=== PATIENT | female | born 1970 | race Caucasian/White ===

== ENCOUNTER 2023-03-25 12:53 | Outpatient (CLI) | payer BC, SELFPAY ==
--- NOTE | ~2023-03-25 | XR_ITS ---
EXAMINATION: XR finger 5th RT min 2V DATE: 03/25/2023 13:14 INDICATION: Pain at the interphalangeal joints of the fifth digit post supplying injury TECHNIQUE: Dorsal palmar, lateral and 2 oblique views of the right fifth digit were obtained COMPARISON: None FINDINGS: Nondisplaced oblique fracture of the fifth middle phalanx extending from the ulnar side of the distal articular surface at the radial side of the base of the middle phalanx. Alignment remains essentiall y anatomic. No other fractures identified. Mild osteoarthritis at the visualized interphalangeal join ts. Mild soft tissue swelling about the fifth digit. IMPRESSION: 1. Nondisplaced oblique fracture extending the length of the fifth middle phalanx. Reviewed, dictated and finalized at location A. IMPRESSION: 1. Nondisplaced oblique fracture extending the length of the fifth middle phala nx.
== END 2023-03-25 12:54 | disposition home or self-care (01) ==
PROVIDERS: Visit Provider Plastic Surgery
DX: S62.656A Nondisplaced fracture of middle phalanx of right little finger, initial encounter for closed fracture (principal); X58.XXXA Exposure to other specified factors, initial encounter
CPT/HCPCS: 73140

== ENCOUNTER 2023-03-31 10:39 | Outpatient (CLI) | payer BC, SELFPAY ==
--- NOTE | ~2023-03-31 | XR_ITS ---
EXAMINATION: XR finger 5th RT min 2V DATE: 03/31/2023 10:56 INDICATION: Right hand small finger fracture follow-up. TECHNIQUE: 4 views of right hand fifth digit were obtained. COMPARISON: Right hand fifth digit radiographs 03/25/2023 FINDINGS: There is an oblique fracture of fifth middle phalanx with involvement of the distal articul ar surface in near-anatomic alignment. There is a possible oblique fracture of the head of the fifth metacarpal with involvement of the articular surface in near-anatomic alignment. There is mild osteoa rthritis of fifth distal interphalangeal joint. IMPRESSION: 1. Oblique fracture of fifth middle phalanx in near-anatomic alignment. 2. Possible oblique fracture of head of fifth metacarpal in near-anatomic alignment seen on only one view. Reviewed, dictated and finalized at location E. IMPRESSION: 1. Oblique fracture of fifth middle phalanx in near-anatomic alignment. 2. Possible oblique fracture of head of fifth metacarpal in near-anatomic align ment seen on only one view.
== END 2023-03-31 10:40 | disposition home or self-care (01) ==
LOC: ANHIMG 10:42
PROVIDERS: Visit Provider Plastic Surgery
DX: S62.626D Displaced fracture of middle phalanx of right little finger, subsequent encounter for fracture with routine healing (principal); X58.XXXD Exposure to other specified factors, subsequent encounter
CPT/HCPCS: 73140

== ENCOUNTER 2023-04-11 10:54 | Outpatient (CLI) | payer BC, SELFPAY ==
--- NOTE | ~2023-04-11 | XR_ITS ---
EXAM: XR finger 5th RT min 2V DATE: 04/11/2023 11:50 HISTORY: small finger fracture . COMPARISON: 03/31/2023. FINDINGS: Normal mineralization. Healing nondisplaced intra-articular fracture of the distal aspect of the right fifth middle phalange. No right fifth metacarpal fracture detected. No new acute fractur e or dislocation. No lytic or blastic lesion. Mild scattered osteoarthritic changes. No erosion or pe riosteal change. Soft tissues within normal limits. IMPRESSION: Healing, nondisplaced, intra-articular fracture of the distal aspect of the right fifth middle phalan ge. Reviewed, dictated and finalized at location K. IMPRESSION: Healing, nondisplaced, intra-articular fracture of the distal aspect of the rig ht fifth middle phalange.
== END 2023-04-11 10:55 | disposition home or self-care (01) ==
PROVIDERS: Visit Provider Plastic Surgery
DX: S62.626D Displaced fracture of middle phalanx of right little finger, subsequent encounter for fracture with routine healing (principal); X58.XXXD Exposure to other specified factors, subsequent encounter
CPT/HCPCS: 73140

== ENCOUNTER 2023-04-25 12:36 | Outpatient (CLI) | payer BC, SELFPAY ==
--- NOTE | ~2023-04-25 | XR_ITS ---
EXAMINATION: XR finger 5th RT min 2V DATE: 04/25/2023 13:17 INDICATION: Displaced fracture of the right fifth middle phalanx TECHNIQUE: Dorsal palmar, lateral and 2 oblique views of the right fifth digit were obtained COMPARISON: 04/11/2023 FINDINGS: Continued interval healing of a fracture at the right fifth middle phalanx which remains in near-mat omic alignment with no residual lucency along the fracture plane. No new fractures identified. Mild o steoarthritis at the fifth proximal and distal interphalangeal and fourth proximal interphalangeal caio ints. No erosions to suggest inflammatory arthritis. Soft tissues are unremarkable. IMPRESSION: Interval progression of now advanced healing of a fracture of the right fifth middle phalanx which re travis in near-anatomic alignment. Reviewed, dictated and finalized at location A. IMPRESSION: Interval progression of now advanced healing of a fracture of the right fifth m iddle phalanx which remains in near-anatomic alignment.
--- NOTE | ~2023-04-25 | XR_ITS ---
EXAMINATION: XR knee RT min 4V, XR knee LT min 4V DATE: 04/25/2023 13:16 INDICATION: Acute bilateral knee pain TECHNIQUE: 1. Weight bearing anteroposterior and Cahkraborty, sunrise, and flexed lateral views of the right knee were obtained 2. Weight bearing anteroposterior and Chakraborty, sunrise, and flexed lateral views of the left knee w ere obtained COMPARISON: None. FINDINGS: Alignment is normal at both knees. No fracture. Normal joint space at the medial and lateral compartm ents of both knees. Mild bilateral patellofemoral osteoarthritis with small marginal osteophytes with relatively preserved joint spaces. No erosions to suggest inflammatory arthritis. Soft tissues are u nremarkable in both knees with no knee joint effusions. IMPRESSION: 1. Mild bilateral patellofemoral osteoarthritis. Reviewed, dictated and finalized at location A. IMPRESSION: 1. Mild bilateral patellofemoral osteoarthritis.
--- NOTE | ~2023-04-25 | XR_ITS ---
EXAMINATION: XR hip LT min 2V, XR hip RT min 2V DATE: 04/25/2023 13:15 INDICATION: Acute onset bilateral hip pain TECHNIQUE: 1. Anteroposterior and frog-leg lateral views of the left hip were obtained. 2. Anteroposterior and frog-leg lateral views of the right hip were obtained. COMPARISON: None. FINDINGS: Normal alignment at the bilateral hips. No fracture or suspected avascular necrosis. Very mild bilate ral hip and sacroiliac osteoarthritis, the former with tiny marginal osteophytes but relatively prese rved joint spaces. Couple phleboliths in the pelvis along with bilateral Essure type fallopian tube occlusion devices. IMPRESSION: 1. Very mild bilateral hip and sacroiliac osteoarthritis. Reviewed, dictated and finalized at location A. IMPRESSION: 1. Very mild bilateral hip and sacroiliac osteoarthritis.
== END 2023-04-25 12:37 | disposition home or self-care (01) ==
LOC: ANHIMG 12:41
PROVIDERS: Visit Provider Plastic Surgery
DX: M17.0 Bilateral primary osteoarthritis of knee (principal); S62.626D Displaced fracture of middle phalanx of right little finger, subsequent encounter for fracture with routine healing; X58.XXXD Exposure to other specified factors, subsequent encounter; M16.0 Bilateral primary osteoarthritis of hip; M53.3 Sacrococcygeal disorders, not elsewhere classified
CPT/HCPCS: 73140; 73502; 73564

== ENCOUNTER 2023-11-13 09:06 | Emergency (ER) | payer BC, SELFPAY ==
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
[2023-11-13 09:10] VITALS: BP 116/74; PULSE 65; RESP 16; TEMP 36.9; O2SAT 99
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
== END 2023-11-13 09:53 | disposition home or self-care (01) ==
PROVIDERS: Emergency Provider Nurse Practitioner
DX: S20.222A Contusion of left back wall of thorax, initial encounter (principal); V92.03XA Drowning and submersion due to fall off other powered watercraft, initial encounter; Z79.82 Long term (current) use of aspirin; K21.9 Gastro-esophageal reflux disease without esophagitis
CPT/HCPCS: 71101; 99213; G0463

== ENCOUNTER 2025-04-22 13:54 | Outpatient (CLI) | payer BC, SELFPAY ==
--- NOTE | ~2025-04-22 | XR_ITS ---
EXAMINATION: XR hand LT min 3V, 04/22/2025 14:00 CDT HISTORY: S63.502A - Unspecified sprain of left wrist, initial enco... COMPARISON: No comparisons available. Findings: No acute fracture or malalignment. No significant degenerative changes. Soft tissues unremarkable. Impression: No acute fracture or malalignment. Reviewed, dictated and finalized at location A. Impression: No acute fracture or malalignment.
--- OUTSIDE RECORDS SUMMARY | 2025-04-22 14:16 | XMS_ITS | Encounter Summary ---
Author Organization [facility] Address [address] [place] [address] Care Team Providers Care Business Law Teacher Name Role Phone Ilya Chadwick MD Primary Care Provider + Encounter Details Date Type Department Care Team (Late st Contact Info) Description 08/09/2007 Outpatient Historical [facility] Shawna Ralph MD [address] [place] [address] Normal Delivery Social History Tobacco Use Types Packs/Day Years Used Date Smoking Tobacco: Never Assessed Comments Unknown Sex and Gender Information Value Date Recorded Sex Assigned at Not on file Legal Sex Female 3:47 AM PUBLIC ADDRESS SYSTEM MECHANIC Gender Identity Not on file Sexual Orientation Not on file documented as of this encounter Plan of Treatment Not on file documented as of this encounter Procedures Procedure Name Priority Date/Time Associated Diagnosis Comments CBC WITH DIFFERENTIAL Routine 08/09/2007 9:25 AM PUBLIC ADDRESS SYSTEM MECHANIC CBC WITH DIFFERENTIAL Routine 08/09/2007 9:25 AM PUBLIC ADDRESS SYSTEM MECHANIC URIC ACID Routine 08/09/2007 9:25 AM PUBLIC ADDRESS SYSTEM MECHANIC AST Routine 08/09/2007 9:25 AM PUBLIC ADDRESS SYSTEM MECHANIC LACTATE DEHYDROGENASE Routine 08/09/2007 9:25 AM PUBLIC ADDRESS SYSTEM MECHANIC URINALYSIS WITH REFLEX CULTURE Routine 08/09/2007 8:10 AM PUBLIC ADDRESS SYSTEM MECHANIC URINALYSIS W/REFLEX MICROSCOPIC Routine 08/09/2007 8:10 AM PUBLIC ADDRESS SYSTEM MECHANIC documented in this encounter Results * (ABNORMAL) CBC WITH DIFFERENTIAL (08/09/2007 9:25 AM PUBLIC ADDRESS SYSTEM MECHANIC) NEUTROPHILS 93(H) 45 - 70 % INTERFAC E SYSTEM LYMPHOCYTES 3(L) 16 - 45 % INTERFAC E SYSTEM MONOCYTES 4 3 - 13 % INTERFACE SYSTEM EOSINOPHILS 0 0 - 7 % INTERFAC E SYSTEM BASOPHILS 0 0 - 2 % INTERFACE SYSTEM NEUTROPHIL ABSOLUTE 13.40(H) 1.90 - 7.00 K/uL INTERFACE SYSTEM LYMPHOCYTE ABSOLUTE 0.36(L) 0.70 - 4.50 K/uL INTERFACE SYSTEM MONOCYTE ABSOLUTE 0.58 0.10 - 1.30 K/uL INTERFACE SYSTEM EOSINOPHIL ABSOLUTE 0.03 0.00 - 0.70 K/uL INTERFACE SYSTEM BASOPHILS ABSOLUTE 0.03 0.00 - 0.20 K/uL INTERFACE SYSTEM 08/09/2007 9:25 AM PUBLIC ADDRESS SYSTEM MECHANIC Shawna Ralph MD HEMATOLOGY ORDERABLES Edited Performing Organization Address City/[facility] Co de Phone Number INTERFACE SYSTEM Refer to clinic/hospital department * (ABNORMAL) CBC WITH DIFFERENTIAL (08/09/2007 9:25 AM PUBLIC ADDRESS SYSTEM MECHANIC) WBC 14.4(H) 4.0 - 9.8 K/uL INTERFACE SYSTEM RBC 3.99 3.90 - 4.90 M/uL INTERFACE SYSTEM HEMOGLOBIN 12.5 11.8 - 14.8 g/dL INTERFACE SYSTEM HEMATOCRIT 36.5 35.5 - 44.0 % INTERFACE SYSTEM MCV 91.5 82.0 - 99.0 fL INTERFACE SYSTEM MCH 31.3 27.2 - 32.6 pg INTERFACE SYSTEM MCHC 34.2 31.5 - 35.5 % INTERFACE SYSTEM RDW 13.9 11.5 - 14.5 % INTERFACE SYSTEM RDW-STDEV 45.9 37.1 - 48.7 fL INTERFACE SYSTEM PLATELETS 267 140 - 350 K/uL INTERFACE SYSTEM MPV 10.2 9.3 - 12.4 fL INTERFACE SYSTEM 08/09/2007 9:25 AM PUBLIC ADDRESS SYSTEM MECHANIC us Shawna Ralph MD HEMATOLOGY ORDERABLES Edited Performing Organization Address City/[facility]/ZIP Co de Phone Number INTERFACE SYSTEM Refer to clinic/hospital department * URIC ACID (08/09/2007 9:25 AM PUBLIC ADDRESS SYSTEM MECHANIC) URIC ACID 3.5 2.3 - 6.6 mg/dL INTERFACE SYSTEM 08/09/2007 9:25 AM PUBLIC ADDRESS SYSTEM MECHANIC us Shawna Ralph MD CHEMISTRY ORDERABLES Edited Performing Organization Address [facility] de Phone Number INTERFACE SYSTEM Refer to clinic/hospital department * LACTATE DEHYDROGENASE (08/09/2007 9:25 AM PUBLIC ADDRESS SYSTEM MECHANIC) LD (LACTATE DEHYDROGENASE) 166 135 - 214 U/L INTERFACE SYSTEM 08/09/2007 9:25 AM PUBLIC ADDRESS SYSTEM MECHANIC us Shawna Ralph MD CHEMISTRY ORDERABLES Edited Performing Organization Address [facility] de Phone Number INTERFACE SYSTEM Refer to clinic/hospital department * AST (08/09/2007 9:25 AM PUBLIC ADDRESS SYSTEM MECHANIC) AST 23 12 - 32 U/L INTERFAC E SYSTEM 08/09/2007 9:25 AM PUBLIC ADDRESS SYSTEM MECHANIC us Shawna Ralph MD CHEMISTRY ORDERABLES Edited Performing Organization Address [facility] de Phone Number INTERFACE SYSTEM Refer to clinic/hospital department * (ABNORMAL) URINALYSIS (08/09/2007 8:10 AM PUBLIC ADDRESS SYSTEM MECHANIC) COLOR UA Yellow INTERFACE SYSTEM CLARITY UA Clear Clear INTERFACE SYSTEM SPECIFIC GRAVITY UA 1.020 1.001 - 1.035 INTERFACE SYSTEM PH UA 7.5 5.0 - 8.0 INTERFACE SYSTEM LEUKOCYTE ESTERASE UA Negative Negative INTERFACE SYSTEM NITRITE UA Negative Negative INTERFACE SYSTEM PROTEIN UA Trace(A) Negative INTERFACE SYSTEM GLUCOSE UA Negative Negative INTERFACE SYSTEM KETONES UA 2+(A) Negative INTERFACE SYSTEM UROBILINOGEN UA <1 <=1 mg/dL INTE RFACE SYSTEM BILIRUBIN UA Negative Negative INTERFA CE SYSTEM BLOOD UA Negative Negative INTERFACE SYSTEM WBC UA 1 0 - 5 /HPF INTERFACE SYSTEM RBC UA 4 0 - 4 /HPF INTERFACE SYSTEM BACTERIA UA 1+(A) None Seen /HPF INTERFACE SYSTEM EPITHELIAL CELLS, URINE 2-5 /HPF INTERFACE SYSTEM 08/09/2007 8:10 AM PUBLIC ADDRESS SYSTEM MECHANIC us Shawna Ralph MD URINE ORDERABLES Edited Performing Organization Address [facility] Phone Number INTERFACE SYSTEM Refer to clinic/hospital department * URINALYSIS WITH REFLEX CULTURE (08/09/2007 8:10 AM PUBLIC ADDRESS SYSTEM MECHANIC) URINE CULTURE ORDER Not indicated INTERFACE SYSTEM Comment: Criteria for a reflex culture include one or more of the following: Abn ormal nitrite, leukocyte esterase, WBCs or RBCs. Lack of qualifying criteria does not exclude the possiblity of a urinary tract infection. Dilute urine, drug interference, etc. may decrease the sensitivity of the criteria analytes. 08/09/2007 8:10 AM PUBLIC ADDRESS SYSTEM MECHANIC us Shawna Ralph MD URINE ORDERABLES Edited Performing Organization Address [facility] Phone Number INTERFACE SYSTEM Refer to clinic/hospital department documented in this encounter Visit Diagnoses Diagnosis Normal delivery documented in this encounter Care Teams Business Law Teacher Relationship Specialty Start Date End Date Ilya Chadwick MD [address] [place] [address] PCP - General 03/30/07 documented as of this encounter
--- OUTSIDE RECORDS SUMMARY | 2025-04-22 14:16 | XMS_ITS | Encounter Summary ---
Author Organization [facility] Address [address] [place] [address] Care Team Providers Care Restaurant Associate Name Role Phone Ilya Chadwick MD Primary Care Provider + Encounter Details Date Type Department Care Team (Late st Contact Info) Description 09/11/2007 Outpatient Historical [facility] Maternal and Ground Floor S [facility] [address] [place] [phone] Montez Dumont MD [address] [place] [phone] Social History Tobacco Use Types Packs/Day Years Used Date Smoking Tobacco: Never Assessed Comments Unknown Sex and Gender Information Value Date Recorded Sex Assigned at Not on file Legal Sex Female 3:47 AM PERSONAL CARE SERVICE PROVIDER Gender Identity Not on file Sexual Orientation Not on file documented as of this encounter Plan of Treatment Not on file documented as of this encounter Visit Diagnoses Not on filedocumented in this encounter Care Teams Restaurant Associate Relationship Specialty Start Date End Date Ilya Chadwick MD [address] [place] [phone] PCP - General 03/30/07 documented as of this encounter
--- OUTSIDE RECORDS SUMMARY | 2025-04-22 14:16 | XMS_ITS | Encounter Summary ---
Author Organization [facility] Address [address] [place] [address] Care Team Providers Care Fund Accountant Name Role Phone Ilya Chadwick MD Primary Care Provider + Encounter Details Date Type Department Care Team (Late st Contact Info) Description 06/02/2007 Outpatient Historical [facility] Shawna Ralph MD [address] [place] [address] Social History Tobacco Use Types Packs/Day Years Used Date Smoking Tobacco: Never Assessed Comments Unknown Sex and Gender Information Value Date Recorded Sex Assigned at Not on file Legal Sex Female 3:47 AM INSOLE LIP TURNER Gender Identity Not on file Sexual Orientation Not on file documented as of this encounter Plan of Treatment Not on file documented as of this encounter Visit Diagnoses Not on filedocumented in this encounter Care Teams Fund Accountant Relationship Specialty Start Date End Date Ilya Chadwick MD [address] [place] [address] PCP - General 03/30/07 documented as of this encounter
--- OUTSIDE RECORDS SUMMARY | 2025-04-22 14:16 | XMS_ITS | Encounter Summary ---
Author Organization [facility] Address [address] [place] [address] Care Team Providers Care Body And Frame Man Name Role Phone Ilya Chadwick MD Primary Care Provider + Encounter Details Date Type Department Care Team (Latest Contact Info) Description 05/01/2007 Outpatient Historical [facility] Shawna Ralph MD [address] [place] [address] Abn NOS-Antepar (Primary Dx) Social History Tobacco Use Types Packs/Day Years Used Date Smoking Tobacco: Never Assessed Comments Unknown Sex and Gender Information Value Date Recorded Sex Assigned at Not on file Legal Sex Female 3:47 AM DOCUMENT IMAGING MANAGER Gender Identity Not on file Sexual Orientation Not on file documented as of this encounter Plan of Treatment Not on file documented as of this encounter Visit Diagnoses Diagnosis Unspecified abnormality affecting management of mother, antepartum condition or complication- Primary documented in this encounter Care Teams Body And Frame Man Relationship Specialty Start Date End Date Ilya Chadwick MD [address] [place] [address] PCP - General 03/30/07 documented as of this encounter
--- OUTSIDE RECORDS SUMMARY | 2025-04-22 14:16 | XMS_ITS | Encounter Summary ---
Author Organization [facility] Address [address] [place] [address] Care Team Providers Care Process Excellence Manager Name Role Phone Ilya Chadwick MD Primary Care Provider + Encounter Details Date Type Department Care Team (Late st Contact Info) Description 11/18/2005 Outpatient Historical [facility] [place] [address] [facility] [address] [place] [address] Other Screening Mammogram (Primary Dx) Social History Tobacco Use Types Packs/Day Years Used Date Smoking Tobacco: Never Assessed Comments Unknown Sex and Gender Information Value Date Recorded Sex Assigned at Not on file Legal Sex Female 3:47 AM DEBRIDGING MACHINE OPERATOR Gender Identity Not on file Sexual Orientation Not on file documented as of this encounter Plan of Treatment Not on file documented as of this encounter Visit Diagnoses Diagnosis Other screening mammogram- Primary documented in this encounter Care Teams Process Excellence Manager Relationship Specialty Start Date End Date Ilya Chadwick MD [address] [place] [address] PCP - General 03/30/07 documented as of this encounter
--- OUTSIDE RECORDS SUMMARY | 2025-04-22 14:16 | XMS_ITS | Encounter Summary ---
Author Organization [facility] Address [address] [place] [address] Care Team Providers Care Life Insurance Sales Agent Name Role Phone Ilya Chadwick MD Primary Care Provider + Encounter Details Date Type Department Care Team (Late st Contact Info) Description 04/13/2007 Outpatient Historical [facility] Maternal and Ground Floor S [facility] [address] [place] [address] Shawna Ralph MD [address] [place] [address] Social History Tobacco Use Types Packs/Day Years Used Date Smoking Tobacco: Never Assessed Comments Unknown Sex and Gender Information Value Date Recorded Sex Assigned at Not on file Legal Sex Female 3:47 AM COLORING MACHINE OPERATOR Gender Identity Not on file Sexual Orientation Not on file documented as of this encounter Plan of Treatment Not on file documented as of this encounter Visit Diagnoses Not on filedocumented in this encounter Care Teams Life Insurance Sales Agent Relationship Specialty Start Date End Date Ilya Chadwick MD [address] [place] [address] PCP - General 03/30/07 documented as of this encounter
--- OUTSIDE RECORDS SUMMARY | 2025-04-22 14:16 | XMS_ITS | Encounter Summary ---
Author Organization [facility] Address [address] [place] [address] Care Team Providers Care Ur Coordinator Name Role Phone Ilya Chadwick MD Primary Care Provider + Encounter Details Date Type Department Care Team (Late st Contact Info) Description 05/26/[address] [facility] Maternal and Ground Floor S [facility] [address] [facility] [place] [phone] Ric Arita MD NO ADDRESS ON FILE Social History Tobacco Use Types Packs/Day Years Used Date Smoking Tobacco: Never Assessed Comments Unknown Sex and Gender Information Value Date Recorded Sex Assigned at Not on file Legal Sex Female 3:47 AM STEWARDESSES TEACHER Gender Identity Not on file Sexual Orientation Not on file documented as of this encounter Plan of Treatment Not on file documented as of this encounter Visit Diagnoses Not on filedocumented in this encounter Care Teams Ur Coordinator Relationship Specialty Start Date End Date Ilya Chadwick MD [address] [place] [phone] PCP - General 03/30/07 documented as of this encounter
--- OUTSIDE RECORDS SUMMARY | 2025-04-22 14:16 | XMS_ITS | Encounter Summary ---
Author Organization [facility] Address [address] [place] [address] Care Team Providers Care Timber Skidder Name Role Phone Ilya Chadwick MD Primary Care Provider + Encounter Details Date Type Department Care Team (Late st Contact Info) Description 09/14/2007 Outpatient Historical [facility] Maternal and Ground Floor S [facility] [address] [place] [phone] Bhupinder Christianson MD NO ADDRESS ON FILE Social History Tobacco Use Types Packs/Day Years Used Date Smoking Tobacco: Never Assessed Comments Unknown Sex and Gender Information Value Date Recorded Sex Assigned at Not on file Legal Sex Female 3:47 AM ELECTRONICS UTILITY WORKER Gender Identity Not on file Sexual Orientation Not on file documented as of this encounter Plan of Treatment Not on file documented as of this encounter Visit Diagnoses Not on filedocumented in this encounter Care Teams Timber Skidder Relationship Specialty Start Date End Date Ilya Chadwick MD [address] [place] [address] PCP - General 03/30/07 documented as of this encounter
--- OUTSIDE RECORDS SUMMARY | 2025-04-22 14:16 | XMS_ITS | Encounter Summary ---
Author Organization [facility] Address [address] [place] [address] Care Team Providers Care Production Control Analyst Name Role Phone Ilya Chadwick MD Primary Care Provider + Encounter Details Date Type Department Care Team (Latest Contact Info) Description 09/06/2007 [facility] Shawna Ralph MD [address] [place] [address] Abn NOS-Antepar Social History Tobacco Use Types Packs/Day Years Used Date Smoking Tobacco: Never Assessed Comments Unknown Sex and Gender Information Value Date Recorded Sex Assigned at Not on file Legal Sex Female 3:47 AM RELIABILITY TECHNOLOGIST Gender Identity Not on file Sexual Orientation Not on file documented as of this encounter Plan of Treatment Not on file documented as of this encounter Visit Diagnoses Diagnosis Unspecified abnormality affecting management of mother, antepartum condition or complication documented in this encounter Care Teams Production Control Analyst Relationship Specialty Start Date End Date Ilya Chadwick MD [address] [place] [address] PCP - General 03/30/07 documented as of this encounter
--- OUTSIDE RECORDS SUMMARY | 2025-04-22 14:16 | XMS_ITS | Encounter Summary ---
Author Organization [facility] Address [address] [place] [address] Care Team Providers Care Public Area Supervisor Name Role Phone Ilya Chadwick MD Primary Care Provider + Encounter Details Date Type Department Care Team (Late st Contact Info) Description 05/11/2007 Outpatient Historical [facility] Maternal and Ground Floor S [facility] [address] [place] [phone] Montez Dumont MD [id number] [place] [phone] Social History Tobacco Use Types Packs/Day Years Used Date Smoking Tobacco: Never Assessed Comments Unknown Sex and Gender Information Value Date Recorded Sex Assigned at Not on file Legal Sex Female 3:47 AM NICKER Gender Identity Not on file Sexual Orientation Not on file documented as of this encounter Plan of Treatment Not on file documented as of this encounter Visit Diagnoses Not on filedocumented in this encounter Care Teams Public Area Supervisor Relationship Specialty Start Date End Date Ilya Chadwick MD [address] [place] [address] PCP - General 03/30/07 documented as of this encounter
--- OUTSIDE RECORDS SUMMARY | 2025-04-22 14:16 | XMS_ITS | Encounter Summary ---
Author Organization [facility] Address [address] [place] [address] Care Team Providers Care Electric Motor Mechanic Name Role Phone Ilya Chadwick MD Primary Care Provider + Encounter Details Date Type Department Care Team (Late st Contact Info) Description 03/30/2007 Outpatient Historical [facility] Maternal and Ground Floor S 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
--- OUTSIDE RECORDS SUMMARY | 2025-04-22 14:16 | XMS_ITS | Encounter Summary ---
Author Organization [facility] Address [address] [place] [address] Care Team Providers Care Match Up Person Name Role Phone Ilya Chadwick MD Primary Care Provider + Encounter Details Date Type Department Care Team (Latest Contact Info) Description 03/30/2007 Outpatient [facility] Shawna Ralph MD [address] [place] [address] Abn NOS-Antepar (Primary Dx) Social History Tobacco Use Types Packs/Day Years Used Date Smoking Tobacco: Never Assessed Comments Unknown Sex and Gender Information Value Date Recorded Sex Assigned at Not on file Legal Sex Female 3:47 AM PLASTICS BENCH MECHANIC Gender Identity Not on file Sexual Orientation Not on file documented as of this encounter Plan of Treatment Not on file documented as of this encounter Visit Diagnoses Diagnosis Unspecified abnormality affecting management of mother, antepartum condition or complication- Primary documented in this encounter Care Teams Match Up Person Relationship Specialty Start Date End Date Ilya Chadwick MD [address] [place] [address] PCP - General 03/30/07 documented as of this encounter
--- OUTSIDE RECORDS SUMMARY | 2025-04-22 14:16 | XMS_ITS | Encounter Summary ---
Author Organization [facility] Address [address] [place] [address] Care Team Providers Care Hospital Director Name Role Phone Ilya Chadwick MD Primary Care Provider + Encounter Details Date Type Department Care Team (Late st Contact Info) Description 09/06/2007 Outpatient Historical [facility] Maternal and Ground Floor S [facility] [address] [place] [phone] Bhupinder Christianson MD NO ADDRESS ON FILE Social History Tobacco Use Types Packs/Day Years Used Date Smoking Tobacco: Never Assessed Comments Unknown Sex and Gender Information Value Date Recorded Sex Assigned at Not on file 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
--- OUTSIDE RECORDS SUMMARY | 2025-04-22 14:16 | XMS_ITS | Clinical Summary ---
Author Organization [facility] Address [address] [place] [address] Care Team Providers Care Adoption Services Manager Name Role Phone Unavailable Primary Care Provider Unavailabl e Social History Tobacco Use Types Packs/Day Years Used Date Smoking Tobacco: Never Assessed Comments Unknown Sex and Gender Information Value Date Recorded Sex Assigned at Not on file Legal Sex Female 7:32 PM CDT Gender Identity Not on file Sexual Orientation Not on file Plan of Treatment Health Maintenance Due Date Last Done Comments Cervical Cancer Screening Pa p Smear (Age 30 to 64) Every 3 Years 1968 Colorectal Cancer Screening Colonoscopy (10 Years) 1968 Annual Physical 1971 Hepatitis C 1986 DTaP, Tdap and Td Vaccines ( 1 - Tdap) 1987 Hepatitis B Vaccines (1 of 3 - 19+ 3-dose series) 1987 Cervical Cancer Screening Pa p with HPV Testing (Age 30 to 64) Every 5 Years 1998 Cervical Cancer Screening with HPV 1998 Mammogram Screening 2008 Pneumococcal Vaccine: 50+ Ye ars (1 of 1 - PCV) 2018 Zoster Vaccines (1 of 2) 2018 COVID-19 Vaccine ( - 2023-2 5 season) 2025 Meningococcal B Vaccine Aged Out No l onger eligible based on patient's age to complete this topic Meningococcal Vaccine Aged Out No itzel joanna eligible based on patient's age to complete this topic RSV Immunizations Under 20 Months Aged Out No longer eligible based on patient's age to complete this topic
--- OUTSIDE RECORDS SUMMARY | 2025-04-22 14:16 | XMS_ITS | Encounter Summary ---
Author Organization [facility] Address [address] [place] [address] Care Team Providers Care Warp Hanger Name Role Phone Ilya Chadwick MD Primary Care Provider + Encounter Details Date Type Department Care Team (Latest Contact Info) Description 08/05/2007 [facility]patient [facility] Shawna Ralph MD [address] [place] [address] Abn NOS-Antepar Social History Tobacco Use Types Packs/Day Years Used Date Smoking Tobacco: Never Assessed Comments Unknown Sex and Gender Information Value Date Recorded Sex Assigned at Not on file Legal Sex Female 3:47 AM ANESTHESIOLOGY MEDICAL DOCTOR Gender Identity Not on file Sexual Orientation Not on file documented as of this encounter Plan of Treatment Not on file documented as of this encounter Visit Diagnoses Diagnosis Unspecified abnormality affecting management of mother, antepartum condition or complication documented in this encounter Care Teams Warp Hanger Relationship Specialty Start Date End Date Ilya Chadwick MD [address] [place] [address] PCP - General 03/30/07 documented as of this encounter
--- OUTSIDE RECORDS SUMMARY | 2025-04-22 14:17 | XMS_ITS | Encounter Summary ---
Author Organization [facility] Address [address] [place] [address] Care Team Providers Care Postdoctoral Scientist Name Role Phone Ilya Chadwick MD Primary Care Provider + Encounter Details Date Type Department Care Team (Late st Contact Info) Description 10/08/2002 Outpatient Historical [facility] Maternal and Ground Floor S [facility] [address] [place] [address] Shawna Ralph MD [address] [place] [address] Social History Tobacco Use Types Packs/Day Years Used Date Smoking Tobacco: Never Assessed Comments Unknown Sex and Gender Information Value Date Recorded Sex Assigned at Not on file Legal Sex Female 3:47 AM PLASTICS NURSE Gender Identity Not on file Sexual Orientation Not on file documented as of this encounter Plan of Treatment Not on file documented as of this encounter Visit Diagnoses Not on filedocumented in this encounter Care Teams Postdoctoral Scientist Relationship Specialty Start Date End Date Ilya Chadwick MD [address] [place] [address] PCP - General 03/30/07 documented as of this encounter
--- OUTSIDE RECORDS SUMMARY | 2025-04-22 14:17 | XMS_ITS | Encounter Summary ---
Author Organization [facility] Address [address] [place] [address] Care Team Providers Care Rotary Drier Name Role Phone Ilya Chadwick MD Primary Care Provider + Encounter Details Date Type Department Care Team (Late st Contact Info) Description 12/10/2002 Outpatient Historical [facility] Maternal and Ground Floor S [facility] [address] [place] [address] Shawna Ralph MD [address] [place] [address] Social History Tobacco Use Types Packs/Day Years Used Date Smoking Tobacco: Never Assessed Comments Unknown Sex and Gender Information Value Date Recorded Sex Assigned at Not on file Legal Sex Female 3:47 AM NUTRIENT MANAGEMENT SPECIALIST Gender Identity Not on file Sexual Orientation Not on file documented as of this encounter Plan of Treatment Not on file documented as of this encounter Visit Diagnoses Not on filedocumented in this encounter Care Teams Rotary Drier Relationship Specialty Start Date End Date Ilya Chadwick MD [address] [place] [address] PCP - General 03/30/07 documented as of this encounter
--- OUTSIDE RECORDS SUMMARY | 2025-04-22 14:17 | XMS_ITS | Encounter Summary ---
Author Organization [facility] Address [address] [place] [address] Care Team Providers Care Animal Anatomy Teacher Name Role Phone Ilya Chadwick MD Primary Care Provider + Encounter Details Date Type Department Care Team (Latest Contact Info) Description 09/14/2002 Outpatient Historical [facility] Shawna Ralph MD [address] [place] [address] TRIPLET PREG-ANTEPARTUM (Primary Dx) Social History Tobacco Use Types Packs/Day Years Used Date Smoking Tobacco: Never Assessed Comments Unknown Sex and Gender Information Value Date Recorded Sex Assigned at Not on file Legal Sex Female 3:47 AM COOPERAGE SHOP SUPERVISOR Gender Identity Not on file Sexual Orientation Not on file documented as of this encounter Plan of Treatment Not on file documented as of this encounter Visit Diagnoses Diagnosis Triplet , antepartum- Primary documented in this encounter Care Teams Animal Anatomy Teacher Relationship Specialty Start Date End Date Ilya Chadwick MD [address] [place] [address] PCP - General 03/30/07 documented as of this encounter
--- OUTSIDE RECORDS SUMMARY | 2025-04-22 14:17 | XMS_ITS | Encounter Summary ---
Author Organization [facility] Address [address] [place] [address] Care Team Providers Care Theater Usher Name Role Phone Ilya Ferguson MD Primary Care Provider + Encounter Details Date Type Department Care Team (Late st Contact Info) Description 10/10/2008 Outpatient Historical [place] [address] [place] [address] Social History Tobacco Use Types Packs/Day Years Used Date Smoking Tobacco: Never Assessed Comments Unknown Sex and Gender Information Value Date Recorded Sex Assigned at Not on file Legal Sex Female 3:47 AM PATIENT SAFETY ATTENDANT Gender Identity Not on file Sexual Orientation Not on file documented as of this encounter Plan of Treatment Not on file documented as of this encounter Procedures Procedure Name Priority Date/Time Associated Diagnosis Comments XR CONSULTATION Timed Study 10/10/2008 2:15 PM CDT XR HYSTEROSALPINGOGRAM Timed Study 2:15 PM CDT documented in this encounter Results * XR CONSULTATION (10/10/2008 2:15 PM CDT) 10/10/2008 2:15 PM CDT Narrative INTERFACE SYSTEM - 10/11/2008 8:50 AM CDT [facility] [address] [place], [place] [address] Admit Date: 10/10/2008 MAGGIE LEVIN Sex: F Admit Prov: KELLEE HAYES Date: 1970 Primary Care Prov: ILYA FERGUSON CMRN: [id number] [id number] IM[facility]ING SERVICES Ordering Prov: N/A Accession Number: [id number] Interpretation Surgeon: Tricia Schwartz MD Procedure: Hysterosalpingogram 10/10/2008 Clinical history: Post Essure. The procedure was explained to the patient and consent was granted. A speculum was introduced and a catheter passed into the cervical os and endometrial cavity. Contrast was injected and films were obtained. After removal of the speculum and catheter, the patient left the department in stable condition. . Dictated by: TRICIA SCHWARTZ 10/10/2008 16:27 Electronically signed by: TRICIA SCHWARTZ 10/11/2008 08:48 Transcribed: 10/10/2008 16:27 AMK Procedure Note Tricia Schwartz MD - 10/11/2008 [facility] [address], [place] [address] Admit Date: 10/10/2008 MAGGIE LEVIN Sex: F Admit Prov: KELLEE HAYES Date: 1970 Primary Care Prov: ILYA FERGUSON CMRN: [id number] [facility] [id number] IMAGING SERVICES Ordering Prov: N/A Interpretation Surgeon: Tricia Schwartz MD Procedure: Hysterosalpingogram 10/10/2008 Clinical history: Post Essure. The procedure was explained to the patient and consent was granted.A speculum was introduced and a catheter passed into the cervical osand endometrial cavity. Contrast was injected and films were obtained.After removal of the speculum and catheter, the patient left the departmentin stable condition. . Dictated by: TRICIA SCHWARTZ 10/10/2008 16:27 Electronically signed by: TRICIA SCHWARTZ 10/11/2008 08:48 Transcribed: 10/10/2008 16:27 AMK Kellee Hayes MD DIAGNOSTIC IMAGING ORDERABL ES Final Result INTERFACE SYSTEM Refer to clinic/hospital department * XR HYSTEROSALPINGOGRAM (10/10/2008 2:15 PM CDT) Anatomical Region Laterality Modality Pelvis Other 10/10/2008 2:15 PM CDT Narrative 10/11/2008 8:49 AM CDT [facility] [address] [place], [place] [address] Admit Date: 10/10/2008 MAGGIE LEVIN Sex: F Admit Prov: KELLEE HAYES Date: 1970 Primary Care Prov: ILYA FERGUSON CMRN: [id number] [facility] [id number] IMAGING SERVICES Ordering Prov: N/A Accession Number: [id number] Interpretation HYSTEROSALPINGOGRAM. 10/10/08 History: Status post Essure procedure. Findings: The Essure wires are in the expected position of the fallopian tubes. Contrast is administered into the uterine cavity which appears normal without evidence of a filling defect. None of the contrast passes into the fallopian tubes and none of the contrast spills into the peritoneal cavities. Opinion: Bilaterally obstructed fallopian tubes. . Dictated by: TRICIA SCHWARTZ 10/10/2008 16:24 Electronically signed by: TRICIA SCHWARTZ 10/11/2008 08:48 Transcribed: 10/10/2008 16:25 AMK Procedure Note Tricia Schwartz MD - 10/11/2008 [facility] [address] [place], [place] [address] Admit Date: 10/10/2008 MAGGIE LEVIN Sex: F Admit Prov: KELLEE HAYES Date: 1970 Primary Care Prov: ILYA FERGUSON CMRN: [id number] Room: [facility] SSN: [id number] IMAGING SERVICES Ordering Prov: N/A Interpretation HYSTEROSALPINGOGRAM. 10/10/08 History: Status post Essure procedure. Findings: The Essure wires are in the expected position of thefallopian tubes. Contrast is administered into the uterine cavity whichappears normal without evidence of a filling defect. None of the contrastpasses into the fallopian tubes and none of the contrast spills into the peritoneal cavities. Opinion: Bilaterally obstructed fallopian tubes. . Dictated by: TRICIA SCHWARTZ 10/10/2008 16:24 Electronically signed by: TRICIA SCHWARTZ 10/11/2008 08:48 Transcribed: 10/10/2008 16:25 AMK us Kellee Hayes MD DIAGNOSTIC IMAGING ORDERABL ES Final Result documented in this encounter Visit Diagnoses Not on filedocumented in this encounter Care Teams Theater Usher Relationship Specialty Start Date End Date Ilya Ferguson MD [address] [place] [address] PCP - General 03/30/07 documented as of this encounter
--- OUTSIDE RECORDS SUMMARY | 2025-04-22 14:17 | XMS_ITS | Encounter Summary ---
Author Organization [facility] Address 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
--- OUTSIDE RECORDS SUMMARY | 2025-04-22 14:17 | XMS_ITS | Encounter Summary ---
Author Organization [facility] Address [address] [place] [address] Care Team Providers Care Network Operations Lead Name Role Phone Ilya Chadwick MD Primary Care Provider + Encounter Details Date Type Department Care Team (Latest Contact Info) Description 11/07/2007 Outpatient [facility] Shawna Ralph MD [address] [place] [address] Elderly Multigravida with Antepartum Condition or Complication Social History Tobacco Use Types Packs/Day Years Used Date Smoking Tobacco: Never Assessed Comments Unknown Sex and Gender Information Value Date Recorded Sex Assigned at Not on file Legal Sex Female 3:47 AM CHEMICAL LIBRARIAN Gender Identity Not on file Sexual Orientation Not on file documented as of this encounter Plan of Treatment Not on file documented as of this encounter Visit Diagnoses Diagnosis Elderly multigravida with antepartum condition or complication documented in this encounter Care Teams Network Operations Lead Relationship Specialty Start Date End Date Ilya Chadwick MD [address] [place] [address] PCP - General 03/30/07 documented as of this encounter
--- OUTSIDE RECORDS SUMMARY | 2025-04-22 14:17 | XMS_ITS | Encounter Summary ---
Author Organization [facility] Address [address] [place] [address] Care Team Providers Care Director On Air Name Role Phone Ilya Chadwick MD Primary Care Provider + Encounter Details Date Type Department Care Team (Latest Contact Info) Description 11/17/2002 Outpatient Historical [facility] Shawna Ralph MD [address] [place] [address] TRIPLET PREG-ANTEPARTUM (Primary Dx) Social History Tobacco Use Types Packs/Day Years Used Date Smoking Tobacco: Never Assessed Comments Unknown Sex and Gender Information Value Date Recorded Sex Assigned at Not on file Legal Sex Female 3:47 AM CARPENTER MAINTENANCE Gender Identity Not on file Sexual Orientation Not on file documented as of this encounter Plan of Treatment Not on file documented as of this encounter Visit Diagnoses Diagnosis Triplet , antepartum- Primary documented in this encounter Care Teams Director On Air Relationship Specialty Start Date End Date Ilya Chadwick MD [address] [place] [address] PCP - General 03/30/07 documented as of this encounter
--- OUTSIDE RECORDS SUMMARY | 2025-04-22 14:17 | XMS_ITS | Encounter Summary ---
Author Organization [employer] [facility] Address 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 NURSE Gender Identity Not on file Sexual Orientation Not on file documented as of this encounter Plan of Treatment Not on file documented as of this encounter Procedures Procedure Name Priority Date/Time Associated Diagnosis Comments PATHOLOGY Routine 10/16/2007 5:00 PM CDT DIC PROFILE Stat 10/16/2007 1:15 PM CDT CBC WITH DIFFERENTIAL Stat 10/16/2007 1:15 PM CDT URIC ACID Stat 10/16/2007 1:15 PM CDT ALT Stat 10/16/2007 1:15 PM CDT AST Stat 10/16/2007 1:15 PM CDT LACTATE DEHYDROGENASE Stat 10/16/2007 1:15 PM CDT documented in this encounter Results * PATHOLOGY (10/16/2007 5:00 PM CDT) FINAL REPORT [facility] [address] [place], [place] [address] Patient: ISAAC LEVIN : 1970 Procedure Date: 10/16/2007 Accession Date: 10/17/2007 Case No: [id number] Ordering Dr: SHAWNA RALPH Case types AW, BW, FW, NW and SH are [place] [facility] [place] SURGICAL PATHOLOGY & NON-GYNECOLOGIC CYTOPATHOLOGY REPORT DIAGNOSIS PLACENTA, SECTION: - ACUTE CHORIOAMNIONITIS, GRADE 1 (SEE DESCRIPTION). - SUBCHORIONIC AND PERIVILLOUS FIBRIN DEPOSITION (SEE DESCRIPTION). - LARGE FOR GESTATIONAL AGE (499 g). - PARTIAL CIRCUMMARGINATE PLACENTA (GROSS DIAGNOSIS). Specimen Description: Placenta and cord. Operative Procedure: Low transverse section. Patient Information/Histor y/Diagnosis: IUP at 36.1 weeks, high BPS. Gross: Received in a container labeled joshua Gaviria microbiology is a 21 x 17 x 2.5-cm mahan placenta with a trimmed weight of 499 g. The surface is blue-hurd and unremarkable. The three-vessel umbilical cord is 35 x 1.4 cm, shows normal torsion, and inserts eccentrically 5 cm from the closest disc margin. The membranes are hurd, semitranslucent, insert in a circummarginate fashion over 30% of the disc circumference and marginally over the remainder. The point of membrane rupture is at the margin. There is sosa subchorionic fibrin deposition at the point of circummarginate insertion. The maternal surface is composed of complete and intact cotyledons. Serial sections reveal uniform spongy maroon parenchyma with a 1.5-cm subchorionic fibrin deposit. There is no adherent or compressing retroplacental hematoma formation. Summary of sections: A1-cord and membrane roll; A2 subchorionic fibrin at point of circummarginate membranous insertion; A3 and A4-central section to include subchorionic fibrin deposit, bisected; A5-additional central section. MONSERRAT/PIERRE 10.18.2007 11:02 am Microscopic: Sections are labeled [id number] Isaac Levin. The placental weight is at the 90th percentile for a 36-week gestation. The umbilical cord has the usual three vessel arrangement. The membranes display focal acute inflammation, consistent with acute chorioamnionitis, grade 1. Most of the membrane roll is free of any significant inflammation. Sections of the placenta display subchorionic and perivillous fibrin deposits. The placental villi appear mature. BBK/OBINNA 10.19.2007 02:34 pm Staging Form: No. ELECTRONIC SIGNATURE FOR JUAN HANEY M.D.- 10/19/07 02:55 pm INTERFACE SYSTEM 10/16/2007 5:00 PM CDT us Shawna Ralph MD PATHOLOGY/CYTOLOGY ORDERABLES Fi nal Result Performing Organization Address [facility] de Phone Number INTERFACE SYSTEM Refer to clinic/hospital department * ALT (10/16/2007 1:15 PM CDT) ALT 15 0 - 31 U/L [facility] Blood specimen (specimen) 10/16/2007 1:15 PM CDT 10/16/2007 1:25 PM CDT us Shawna Ralph MD CHEMISTRY ORDERABLES Final Resul t Performing Organization Address [facility] de Phone Number [facility] [address] [place] [address] * (ABNORMAL) DIC PROFILE (10/16/2007 1:15 PM CDT) FIBRINOGEN 578(H) 185 - 404 mg/dL [facility] PROTIME 13.0 12.7 - 15.1 Seconds [facility] INR 1.0 0.9 - 1.1 [facility] Comment: INR Therapeutic Range: Adult: 2.0 - 3.0 for pulmonary embolism or prophylaxis against venous thrombosis or systemic embolization. 2.0 - 3.0 for patients with tissue heart valves. 2.5 - 3.5 for patients with mechanical heart valves or post ID. Pediatric (12 years and under): 1.5 - 3.0 Although the target range in children is not well established, INR values of 1.5 - 3.0 are recommended for most patients. Higher values have been used in children with prosthetic cardiac valves and hereditary clotting disorders. (<3 days) therapeutic ranges have not been established. PTT 25.6 24.4 - 36.4 Seconds [facility] Comment: PTT Therapeutic Range: Heparin Level PTT (seconds) <0.10 units/mL <53 0.10 - 0.30 units/mL 53 - 67 0.30 - 0.70 units/mL* 67 - 95* 0.70 - 1.00 units/mL 95 - 116 *corresponds to therapeutic range for unfractionated heparin D-DIMER QUANT 1.48(H) <=0.42 ug/mL FEU [facility] Comment: DVT Screen reference range <0.45 ug/mL FEU D. Dimer Interpretation: The reference range is not clearly established in uncomplicated pregnancies. Values above the upper limit of the reference range are common from the 31st to 40th week of . High negative predictive values for DVT have been reported with the current methodology, as part of a comprehensive medical examination, including risk stratification. Blood specimen (specimen) 10/16/2007 1:15 PM CDT 10/16/2007 1:25 PM CDT us Shawna Ralph MD HEMATOLOGY ORDERABLES Edited Performing Organization Address City/[facility]/ZIP Co de Phone Number [facility] [address] [place] [address] * URIC ACID (10/16/2007 1:15 PM CDT) URIC ACID 3.6 2.3 - 6.6 mg/dL [facility] Blood specimen (specimen) 10/16/2007 1:15 PM CDT 10/16/2007 1:25 PM CDT us Shawna Ralph MD CHEMISTRY ORDERABLES Final Resul t Performing Organization Address City/[facility] Co de Phone Number [facility] [address] [place] [address] * (ABNORMAL) LACTATE DEHYDROGENASE (10/16/2007 1:15 PM CDT) Pathologist [facility] LD (LACTATE DEHYDROGENASE) 220(H) 135 - 214 U/L [facility] Comment:Slight hemolysis pre sent. Result may be falsely elevated. Blood specimen (specimen) 10/16/2007 1:15 PM CDT 10/16/2007 1:25 PM CDT us Shawna Ralph MD CHEMISTRY ORDERABLES Final Resul t Performing Organization Address [facility] Co de Phone Number [facility] [address] [place] [address] * AST (10/16/2007 1:15 PM CDT) Pathologist [facility] AST 26 12 - 32 U/L [facility] Blood specimen (specimen) 10/16/2007 1:15 PM CDT 10/16/2007 1:25 PM CDT us Shawna Ralph MD CHEMISTRY ORDERABLES Final Resul t Performing Organization Address [facility] Co de Phone Number [facility] [address] [place] [address] * (ABNORMAL) CBC WITH DIFFERENTIAL (10/16/2007 1:15 PM CDT) Pathologist [facility] WBC 15.6(H) 4.0 - 9.8 K/uL [facility] MCH 31.4 27.2 - 32.6 pg [facility] MPV 11.3 9.3 - 12.4 fL [facility] HEMATOCRIT 39.2 35.5 - 44.0 % [facility] RDW-STDEV 47.8 37.1 - 48.7 fL [facility] RBC 4.21 3.90 - 4.90 M/uL [facility] MCHC 33.7 31.5 - 35.5 % [facility] MCV 93.1 82.0 - 99.0 fL [facility] PLATELETS 257 140 - 350 K/uL [facility] HEMOGLOBIN 13.2 11.8 - 14.8 g/dL [facility] RDW 14.2 11.5 - 14.5 % [facility] LYMPHOCYTES 13(L) 16 - 45 % [facility] LYMPHOCYTE ABSOLUTE 2.05 0.70 - 4.50 K/uL [facility] BASOPHILS 0 0 - 2 % [facility] BASOPHILS ABSOLUTE 0.04 0.00 - 0.20 K/uL [facility] MONOCYTES 8 3 - 13 % [facility] MONOCYTE ABSOLUTE 1.30 0.10 - 1.30 K/uL [facility] NEUTROPHILS 78(H) 45 - 70 % [facility] NEUTROPHIL ABSOLUTE 12.09(H) 1.90 - 7.00 K/uL [facility] EOSINOPHILS 1 0 - 7 % [facility] EOSINOPHIL ABSOLUTE 0.09 0.00 - 0.70 K/uL [facility] Blood specimen (specimen) 10/16/2007 1:15 PM CDT 10/16/2007 1:25 PM CDT us Shawna Ralph MD HEMATOLOGY ORDERABLES Edited INTERFACE SYSTEM Refer to clinic/hospital department [facility] [address] [place] [address] documented in this encounter Visit Diagnoses Diagnosis Normal delivery documented in this encounter Care Teams Economist Research Assistant Relationship Specialty Start Date End Date Ilya Chadwick MD [address] [place] [address] PCP - General 03/30/07 documented as of this encounter
--- OUTSIDE RECORDS SUMMARY | 2025-04-22 14:17 | XMS_ITS | Encounter Summary ---
Author Organization [employer] [facility] Address 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
--- OUTSIDE RECORDS SUMMARY | 2025-04-22 14:17 | XMS_ITS | Encounter Summary ---
Author Organization [facility] Address [address] [place] [address] Care Team Providers Care Head Setter Name Role Phone Ilya Chadwick MD Primary Care Provider + Encounter Details Date Type Department Care Team (Late st Contact Info) Description 09/10/2002 Outpatient Historical [facility] Maternal and Ground Floor S [facility] [address] [place] [address] Shawna Ralph MD [address] [place] [address] Social History Tobacco Use Types Packs/Day Years Used Date Smoking Tobacco: Never Assessed Comments Unknown Sex and Gender Information Value Date Recorded Sex Assigned at Not on file Legal Sex Female 3:47 AM 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
--- OUTSIDE RECORDS SUMMARY | 2025-04-22 14:17 | XMS_ITS | Encounter Summary ---
Author Organization [facility] Address [address] [place] [address] Care Team Providers Care Commanding Officer Garage Name Role Phone Ilya Chadwick MD Primary Care Provider + Encounter Details Date Type Department Care Team (Late st Contact Info) Description 08/13/2002 Outpatient Historical [facility] Maternal and Ground Floor S [facility] [address] [place] [address] Shawna Ralph MD [address] [place] [address] Social History Tobacco Use Types Packs/Day Years Used Date Smoking Tobacco: Never Assessed Comments Unknown Sex and Gender Information Value Date Recorded Sex Assigned at Not on file 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
--- OUTSIDE RECORDS SUMMARY | 2025-04-22 14:17 | XMS_ITS | Encounter Summary ---
Author Organization [facility] Address [address] [place] [address] Care Team Providers Care Academic Support Specialist Name Role Phone Ilya Chadwick MD Primary Care Provider + Encounter Details Date Type Department Care Team (Latest Contact Info) Description 04/21/2001 Outpatient Historical [facility] Alberto Olivier MD [address] [facility] [address] [place] [address] Nasal/sinus dis NEC (Primary Dx) Social History Tobacco Use Types Packs/Day Years Used Date Smoking Tobacco: Never Assessed Comments Unknown Sex and Gender Information Value Date Recorded Sex Assigned at Not on file 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
--- OUTSIDE RECORDS SUMMARY | 2025-04-22 14:17 | XMS_ITS | Encounter Summary ---
Author Organization [facility] Address [address] [place] [address] Care Team Providers Care Administrative Resources Associate Name Role Phone Ilya Chadwick MD Primary Care Provider + Encounter Details Date Type Department Care Team (Latest Contact Info) Description 05/15/2001 Outpatient Historical [facility] Leticia Gill MD NO ADDRESS ON FILE Female infertility of unspecified origin (Primary Dx) Social History Tobacco Use Types Packs/Day Years Used Date Smoking Tobacco: Never Assessed Comments Unknown Sex and Gender Information Value Date Recorded Sex Assigned at Not on file Legal Sex Female 3:47 AM 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
--- OUTSIDE RECORDS SUMMARY | 2025-04-22 14:17 | XMS_ITS | Encounter Summary ---
Author Organization [employer] [facility] Address 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 MANAGER Gender Identity Not on file Sexual Orientation Not on file documented as of this encounter Plan of Treatment Not on file documented as of this encounter Procedures Procedure Name Priority Date/Time Associated Diagnosis Comments US BIOPHYSICAL PROF WO NST Timed Study 10/19/2007 11:19 AM CDT US BIOPHYSICAL PROF WO NST Timed Study 10/16/2007 11:42 AM CDT US BIOPHYSICAL PROF WO NST Timed Study 10/11/2007 10:28 AM CDT documented in this encounter Results * US BIOPHYSICAL PROF WO NST (10/19/2007 11:19 AM CDT) Anatomical Region Laterality Modality Pelvis Other Narrative 10/19/2007 11:19 AM CDT Results in [employer] Procedure Note 02/06/2009 Results in [employer] us Shawna Ralph MD US ORDERABLES Final Result * US BIOPHYSICAL PROF WO NST (10/16/2007 11:42 AM CDT) Anatomical Region Laterality Modality Pelvis Other Narrative 10/16/2007 11:42 AM CDT Results in [employer] Procedure Note 02/06/2009 Results in [employer] us Shawna Ralph MD US ORDERABLES Final Result * US BIOPHYSICAL PROF WO NST (10/11/2007 10:28 AM CDT) Anatomical Region Laterality Modality Pelvis Other Narrative 10/11/2007 10:28 AM CDT Results in [employer] Procedure Note 02/06/2009 Results in [employer] us Shawna Ralph MD US ORDERABLES Final Result documented in this encounter Visit Diagnoses Diagnosis Unspecified abnormality affecting management of mother, antepartum condition or complication documented in this encounter Care Teams Dipper Clock And Watch Hands Relationship Specialty Start Date End Date Ilya Chadwick MD [address] [place] [address] PCP - General 03/30/07 documented as of this encounter
--- OUTSIDE RECORDS SUMMARY | 2025-04-22 14:17 | XMS_ITS | Encounter Summary ---
Author Organization [facility] Address [address] [place] [address] Care Team Providers Care Battery Builder Name Role Phone Ilya Chadwick MD Primary Care Provider + Encounter Details Date Type Department Care Team (Late st Contact Info) Description 09/28/2007 Outpatient Historical [facility] Maternal and Ground Floor S [facility] [place] [address] [place] [address] Shawna Ralph MD [address] [place] [address] Social History Tobacco Use Types Packs/Day Years Used Date Smoking Tobacco: Never Assessed Comments Unknown Sex and Gender Information Value Date Recorded Sex Assigned at Not on file Legal Sex Female 3:47 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
--- OUTSIDE RECORDS SUMMARY | 2025-04-22 14:17 | XMS_ITS | Clinical Summary ---
Author Organization [facility] Address [address] [place] [address] Care Team Providers Care Smart Energy Specialist Name Role Phone Keegan Urbina MD Primary Care Provider Unavailab le Source Comments [facility],non-owned Affiliates and Associated Physician Practices is amultiple site organization consisting of ambulatory clinics and hospital sitesin [place], [place], [place] and [place]. This disclosure is being madepursuant to the Care Everywhere program and may not contain all information available regarding this patient. Last updated 18.[facility] Allergies No known active allergies Medications * Be aware that medications may not be up to date on this document. Alwaysverify current medications with the patient. support hose thigh high extra firm compression (JOBST) support hoseIndications:N eed for prophylactic vaccination with combined diphtheria-tetanu s-pertussis (DTP) vaccine,Cough Apply 1 Each to affected area as directed. 1 Each 0 4 Active ALPRAZolam (XANAX) 0.5 MG tablet Take 1 Tab by mouth at bedtime. OVERDUE FOR FOLLOW UP 30 Tab 3 5 Active Aspirin (ASPIR-81 PO) Take 81 mg by mouth once. Active Active Problems Problem Noted Date Diagnosed Date Back pain 10/19/2013 Sore throat 05/18/2012 Immunizations Immunization Administration Dates Next Due TDAP (7yrs+) 09/24/2013 Social History Tobacco Use Types Packs/Day Years Used Date Smoking Tobacco: Never Alcohol Use Standard Drinks/Week Comments No 0 (1 standard drink = 0.6 oz pur e alcohol) Comments No Sex and Gender Information Value Date Recorded Sex Assigned at Not on file Legal Sex Female 7:34 AM JAVA LEAD ENGINEER Gender Identity Not on file Sexual Orientation Not on file Last Filed Vital Signs Vital Sign Reading Time Taken Comments Blood Pressure 124/70 12/13/2014 2:38 PM CDT Pulse 66 12/13/2014 2:38 PM CDT Temperature 36.2 C (97.1 F) 10/19/2013 10:59 AM CDT Respiratory Rate 18 12/13/2014 2:38 PM CDT Oxygen Saturation 98% 12/13/2014 2:38 PM CDT Inhaled Oxygen Concentration - - Weight 88.9 kg (196 lb) 12/13/2014 2:38 PM CDT Height 180.3 cm (5' 11) 12/13/2014 2:38 PM CDT Body Mass Index 27.34 12/13/2014 2:38 PM CDT Plan of Treatment Health Maintenance Due Date Last Done Comments COLOGUARD (AGES 45-75) - COL ON CA SCREENING 1968 COLON MONITORING 1968 COLONOSCOPY - COLON CA SCREENING 1968 CT COLONOGRAPHY - COLON CA SCREENING 1968 Colorectal Cancer Screening 1968 FIT - COLON CA SCREENING 1968 FLEX SIG - COLON CA SCREENING 1968 HIV SCREENING 1983 HEPATITIS C SCREENING 03/20/1986 HEPATITIS B VACCINE (1 of 3 - 19+ 3-dose series) 1987 LIPID TESTING 02/07/2014 02/07/2009 MAMMOGRAM 04/20/2014 04/20/2012, 04/20/2012 PNEUMOCOCCAL VACCINE 50+ (1 of 1 - PCV) 2018 ZOSTER VACCINE (1 of 2) 2018 DTAP/TDAP/TD VACCINES (2 - T d or Tdap) 09/24/2023 09/24/2013 DEPRESSION SCREENING 08/01/2024 COVID-19 VACCINE (1 - 2023-2 5 season) 2025 INFLUENZA VACCINE (#1) 2025 HIB VACCINE Aged Out No longer eligi ble based on patient's age to complete this topic HPV VACCINE Aged Out No longer eligi ble based on patient's age to complete this topic MENINGOCOCCAL (Group B) VACCINE SHARED DECISION-MAKING Aged Out No longer eligible based on patient's age to complete this topic MENINGOCOCCAL GROUPS A/C/Y/W VACCINE Aged Out No longer eligible b ased on patient's age to complete this topic Goals Goal Patient Goal Type Associated Problems Recent Progress Patient-Stated? Author Weight < 90.719 kg (200 lb) Weight 88.9 kg (196 lb)(12/13/2014 2:38 PM CDT) Mikki Bruce MA Note: exercise Procedures Procedure Name Priority Date/Time Associated Diagnosis Comments MAMMO BILAT SCREENING Routine 04/20/2012 LIPID PROFILE W LDL/HDL RATIO 02/07/2009 9:45 AM CDT from Last 3 Months or Most Recently Relevant to Health Maintenance Results * MAMMO SCREENING DIGITAL IMAGE BILAT (04/20/2012) Anatomical Region Laterality Modality Breast Bilateral Other Provider Unknown MAMMO ORDERABLES Final Result * LIPID PROFILE W LDL/HDL (PO REF LAB) (02/07/2009 9:45 AM CDT) Triglycerides 68 <150 mg/dL [facility] Comment: Test Performed at: [facility] [address] [place] [address] MORIAH MORENO MD Cholesterol 177 125 - 200 mg/dL [facility] HDL Cholesterol 57 > OR = 46 mg/dL [facility] LDL Calculated 106 <130 mg/dL (calc) [facility] Comment: DESIRABLE RANGE <100 MG/DL FOR PATIENTS WITH CHD OR DIABETES AND <70 MG/DL FOR DIABETIC PATIENTS WITH KNOWN HEART DISEASE. CHOL/HDLC RATIO 3.1 < OR = 5.0 (calc) [facility] 02/07/2009 9:45 AM CDT 02/07/2009 10:43 PM CDT Keegan Urbina MD LAB - CHEMISTRY ORDERABLES Final Result [facility] [id number] [place] [address] from Last 3 Months or Most Recently Relevant to Health Maintenance Insurance Care Teams Smart Energy Specialist Relationship Specialty Start Date End Date Keegan Urbina MD PCP - General 05/05/09
--- OUTSIDE RECORDS SUMMARY | 2025-04-22 14:17 | XMS_ITS | Encounter Summary ---
Author Organization [facility] Address 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
--- OUTSIDE RECORDS SUMMARY | 2025-04-22 14:17 | XMS_ITS | Encounter Summary ---
Author Organization [facility] Address [address] [place] [address] Care Team Providers Care Gymnasium Teacher Name Role Phone Ilya Chadwick MD Primary Care Provider + Encounter Details Date Type Department Care Team (Late st Contact Info) Description 12/03/2002 Outpatient Historical [facility] Maternal and Ground Floor S [facility] [address] [place] [address] Shawna Ralph MD [address] [place] [address] Social History Tobacco Use Types Packs/Day Years Used Date Smoking Tobacco: Never Assessed Comments Unknown Sex and Gender Information Value Date Recorded Sex Assigned at Not on file 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
--- OUTSIDE RECORDS SUMMARY | 2025-04-22 14:17 | XMS_ITS | Encounter Summary ---
Author Organization [facility] Address [address] [place] [address] Care Team Providers Care Rotor Winder Name Role Phone Ilya Chadwick MD Primary Care Provider + Encounter Details Date Type Department Care Team (Late st Contact Info) Description 12/03/2002 Outpatient Historical [facility] Maternal and Ground Floor S [facility] [address] [place] [address] Shawna Ralph MD [address] [place] [address] Social History Tobacco Use Types Packs/Day Years Used Date Smoking Tobacco: Never Assessed Comments Unknown Sex and Gender Information Value Date Recorded Sex Assigned at Not on file Legal Sex Female 3:47 AM CABLE FORMER Gender Identity Not on file Sexual Orientation Not on file documented as of this encounter Plan of Treatment Not on file documented as of this encounter Visit Diagnoses Not on filedocumented in this encounter Care Teams Rotor Winder Relationship Specialty Start Date End Date Ilya Chadwick MD [address] [place] [address] PCP - General 03/30/07 documented as of this encounter
--- OUTSIDE RECORDS SUMMARY | 2025-04-22 14:17 | XMS_ITS | Clinical Summary ---
Author Organization [facility] Address [address] [place] [address] Phone Care Team Providers Care Hitch Technician Name Role Phone Ilya Chadwick MD Primary Care Provider + Allergies No known active allergies Medications ALPRAZolam (XANAX) 0.5 mg Oral tablet 02/15/2013 Active Aspirin 81 mg Oral TbEF Take by mouth. 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 Gender Identity Not on file Sexual Orientation Not on file Last Filed Vital Signs Vital Sign Reading Time Taken Comments Blood Pressure 130/78 03/27/2013 3:30 PM CDT Pulse - - Temperature - - Respiratory Rate - - Oxygen Saturation - - Inhaled Oxygen Concentration - - Weight 80.3 kg (177 lb) 03/27/2013 3:30 PM CDT Height 177.8 cm (5' 10) 03/27/2013 3:30 PM CDT Body Mass Index 25.4 03/27/2013 3:30 PM CDT Plan of Treatment Health Maintenance Due Date Last Done Comments DTAP/TDAP/TD VACCINES (1 - Tdap) 1987 HEPATITIS B VACCINES (1 of 3 - 19+ 3-dose series) 03/02 BREAST CANCER SCREENING 2008 COLORECTAL SCREENING 2013 Colorectal Cancer Screening 2013 FIT-DNA Q 3 years 2013 FIT/FOBT Q 1 year 2013 Flex Sig/CT Colonography Q 5 years 2013 PAP SMEAR 03/30/2016 03/30/2013 ZOSTER VACCINE (1 of 2) 2018 CERVICAL CANCER SCREENING 03/30/2018 HPV/Cotest (21-29) 03/30/2018 03/30/2013 HPV/Cotest (30-65) 03/30/2018 03/30/2013 INFLUENZA VACCINE (#1) 2025 Procedures Procedure Name Priority Date/Time Associated Diagnosis Comments CERV/VAG CYTOPATH, THIN PREP IMAGR RFLX HPV Routine 03/30/2013 Routine gynecological examination from Last 3 Months or Most Recently Relevant to Health Maintenance Results * CERV/VAG CYTOPATH, THIN PREP IMAGR RFLX HPV (03/30/2013) Endocervical Kellee Hayes MD PATHOLOGY/CYTOLOGY ORDERABL ES Final Result [facility]# [id number] [address] [place] [address] from Last 3 Months or Most Recently Relevant to Health Maintenance Insurance [facility] [employer] PPO [id number] Care Teams Hitch Technician Relationship Specialty Start Date End Date Ilya Chadwick MD [address] [place] [address] PCP - General 03/30/07
--- OUTSIDE RECORDS SUMMARY | 2025-04-22 14:17 | XMS_ITS | Encounter Summary ---
Author Organization [facility] Address [address] [place] [address] Care Team Providers Care Heating Unit Mechanic Name Role Phone Ilya Chadwick MD Primary Care Provider + Encounter Details Date Type Department Care Team (Late st Contact Info) Description 12/11/2002 Outpatient Historical [facility] Support Serv. (Adt Cardiology-[facility]) [address] [place] [address] Cedric Angel MD NO ADDRESS ON FILE Social History Tobacco Use Types Packs/Day Years Used Date Smoking Tobacco: Never Assessed Comments Unknown Sex and Gender Information Value Date Recorded Sex Assigned at Not on file Legal Sex Female 3:47 AM DEPARTMENT SPECIALIST Gender Identity Not on file Sexual Orientation Not on file documented as of this encounter Plan of Treatment Not on file documented as of this encounter Visit Diagnoses Not on filedocumented in this encounter Care Teams Heating Unit Mechanic Relationship Specialty Start Date End Date Ilya Chadwick MD [address] [place] [address] PCP - General 03/30/07 documented as of this encounter
--- OUTSIDE RECORDS SUMMARY | 2025-04-22 14:17 | XMS_ITS | Encounter Summary ---
Author Organization [employer] Address [address] [place] [address] Care Team Providers Care Aeronautical Inspector Name Role Phone Ilya Chadwick MD Primary Care Provider + Encounter Details Date Type Department Care Team (Latest Contact Info) Description 12/10/2002 Inpatient Historical [facility] PATIENT IN A BED Shawna Ralph MD [address] [place] [address] MULT GEST MALPRES-DELIVERED (Primary Dx) Social History Tobacco Use Types Packs/Day Years Used Date Smoking Tobacco: Never Assessed Comments Unknown Sex and Gender Information Value Date Recorded Sex Assigned at Not on file Legal Sex Female 3:47 AM ENT CONSULTANT Gender Identity Not on file Sexual Orientation Not on file documented as of this encounter Plan of Treatment Not on file documented as of this encounter Visit Diagnoses Diagnosis Multiple gestation with malpresentation of one fetus or more, delivered- Primary documented in this encounter Care Teams Aeronautical Inspector Relationship Specialty Start Date End Date Ilya Chadwick MD [address] [place] [address] PCP - General 03/30/07 documented as of this encounter
--- OUTSIDE RECORDS SUMMARY | 2025-04-22 14:17 | XMS_ITS | Encounter Summary ---
Author Organization [facility] Address 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
--- OUTSIDE RECORDS SUMMARY | 2025-04-22 14:17 | XMS_ITS | Encounter Summary ---
Author Organization [facility] Address [address] [place] [address] Care Team Providers Care Access Spec Name Role Phone Ilya Chadwick MD Primary Care Provider + Encounter Details Date Type Department Care Team (Latest Contact Info) Description 10/06/2007 Outpatient Historical [facility] Shawna Ralph MD [address] [place] [address] Elderly Multigravida with Antepartum Condition or Complication Social History Tobacco Use Types Packs/Day Years Used Date Smoking Tobacco: Never Assessed Comments Unknown Sex and Gender Information Value Date Recorded Sex Assigned at Not on file Legal Sex Female 3:47 AM SECURITY SUPERVISOR Gender Identity Not on file Sexual Orientation Not on file documented as of this encounter Plan of Treatment Not on file documented as of this encounter Visit Diagnoses Diagnosis Elderly multigravida with antepartum condition or complication documented in this encounter Care Teams Access Spec Relationship Specialty Start Date End Date Ilya Chadwick MD [address] [place] [address] PCP - General 03/30/07 documented as of this encounter
--- OUTSIDE RECORDS SUMMARY | 2025-04-22 14:17 | XMS_ITS | Encounter Summary ---
Author Organization [facility] Address [address] [place] [address] Care Team Providers Care Emergency Medical Technician Name Role Phone Ilya Chadwick MD Primary Care Provider + Encounter Details Date Type Department Care Team (Late st Contact Info) Description 09/20/2007 Outpatient Historical [facility] Maternal and Ground Floor S [facility] [address] [facility] [place] [address] Ric Arita MD NO ADDRESS ON FILE Social History Tobacco Use Types Packs/Day Years Used Date Smoking Tobacco: Never Assessed Comments Unknown Sex and Gender Information Value Date Recorded Sex Assigned at Not on file Legal Sex Female 3:47 AM PRELOAD SUPERVISOR Gender Identity Not on file Sexual Orientation Not on file documented as of this encounter Plan of Treatment Not on file documented as of this encounter Visit Diagnoses Not on filedocumented in this encounter Care Teams Emergency Medical Technician Relationship Specialty Start Date End Date Ilya Chadwick MD [address] [place] [address] PCP - General 03/30/07 documented as of this encounter
--- OUTSIDE RECORDS SUMMARY | 2025-04-22 14:17 | XMS_ITS | Encounter Summary ---
Author Organization [facility] Address 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
--- OUTSIDE RECORDS SUMMARY | 2025-04-22 14:17 | XMS_ITS | Encounter Summary ---
Author Organization [facility] Address [address] [place] [address] Care Team Providers Care Culinary Chef Name Role Phone Ilya Chadwick MD Primary Care Provider + Encounter Details Date Type Department Care Team (Latest Contact Info) Description 09/13/2002 Outpatient Historical [facility] Shawna Ralph MD [address] [place] [address] CERV INCOMPET-ANTEPARTUM (Primary Dx) Social History Tobacco Use Types Packs/Day Years Used Date Smoking Tobacco: Never Assessed Comments Unknown Sex and Gender Information Value Date Recorded Sex Assigned at Not on file Legal Sex Female 3:47 AM LABEL SEWER Gender Identity Not on file Sexual Orientation Not on file documented as of this encounter Plan of Treatment Not on file documented as of this encounter Visit Diagnoses Diagnosis Cervical incompetence, antepartum condition or complication- Primary documented in this encounter Care Teams Culinary Chef Relationship Specialty Start Date End Date Ilya Chadwick MD [address] [place] [address] PCP - General 03/30/07 documented as of this encounter
--- OUTSIDE RECORDS SUMMARY | 2025-04-22 14:17 | XMS_ITS | Encounter Summary ---
Author Organization [facility] Address [address] [place] [address] Care Team Providers Care Residential Electrician Name Role Phone Ilya Chadwick MD Primary Care Provider + Encounter Details Date Type Department Care Team (Late st Contact Info) Description 12/19/2002 Outpatient Historical [facility] Shawna Ralph MD [address] [place] [address] Social History Tobacco Use Types Packs/Day Years Used Date Smoking Tobacco: Never Assessed Comments Unknown Sex and Gender Information Value Date Recorded Sex Assigned at Not on file Legal Sex Female 3:47 AM EMOTIONAL SUPPORT TEACHER Gender Identity Not on file Sexual Orientation Not on file documented as of this encounter Plan of Treatment Not on file documented as of this encounter Visit Diagnoses Not on filedocumented in this encounter Care Teams Residential Electrician Relationship Specialty Start Date End Date Ilya Chadwick MD [address] [place] [address] PCP - General 03/30/07 documented as of this encounter
--- OUTSIDE RECORDS SUMMARY | 2025-04-22 14:17 | XMS_ITS | Encounter Summary ---
Author Organization [facility] Address [address] [place] [address] Care Team Providers Care Fruit Thinner Name Role Phone Ilya Chadwick MD Primary Care Provider + Encounter Details Date Type Department Care Team (Latest Contact Info) Description 09/27/2002 Inpatient Historical [facility] PATIENT IN A BED Carlos Morgan MD [address] [place] [address] Shawna Ralph MD [address] [place] [address] PREG COMPL NEC-ANTEPART (Primary Dx) Social History Tobacco Use Types Packs/Day Years Used Date Smoking Tobacco: Never Assessed Comments Unknown Sex and Gender Information Value Date Recorded Sex Assigned at Not on file Legal Sex Female 3:47 AM BLENDER SNUFF Gender Identity Not on file Sexual Orientation Not on file documented as of this encounter Plan of Treatment Not on file documented as of this encounter Visit Diagnoses Diagnosis Other specified complication, antepartum(646.83)- Primary Other specified complication, antepartum documented in this encounter Care Teams Fruit Thinner Relationship Specialty Start Date End Date Ilya Chadwick MD [address] [place] [address] PCP - General 03/30/07 documented as of this encounter
--- OUTSIDE RECORDS SUMMARY | 2025-04-22 14:17 | XMS_ITS | Encounter Summary ---
Author Organization [facility] Address [address] [place] [address] Care Team Providers Care Rn Palliative Care Name Role Phone Ilya Chadwick MD Primary Care Provider + Encounter Details Date Type Department Care Team (Late st Contact Info) Description 04/20/2001 Inpatient Historical [facility] Cedric De Los Santos MD NO ADDRESS ON FILE Leticia Dela Cruz MD NO ADDRESS ON FILE Female infertility of unspecified origin (Primary Dx) Social History Tobacco Use Types Packs/Day Years Used Date Smoking Tobacco: Never Assessed Comments Unknown Sex and Gender Information Value Date Recorded Sex Assigned at Not on file Legal Sex Female 3:47 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
--- OUTSIDE RECORDS SUMMARY | 2025-04-22 14:17 | XMS_ITS | Encounter Summary ---
Author Organization [facility] Address [address] [place] [address] Care Team Providers Care Hospital Account Manager Name Role Phone Ilya Chadwick MD Primary Care Provider + Encounter Details Date Type Department Care Team (Latest Contact Info) Description 10/16/2002 Outpatient Historical [facility] Shawna Ralph MD [address] [place] [address] TRIPLET PREG-ANTEPARTUM (Primary Dx) Social History Tobacco Use Types Packs/Day Years Used Date Smoking Tobacco: Never Assessed Comments Unknown Sex and Gender Information Value Date Recorded Sex Assigned at Not on file Legal Sex Female 3:47 AM FURNACE DOOR TENDER Gender Identity Not on file Sexual Orientation Not on file documented as of this encounter Plan of Treatment Not on file documented as of this encounter Visit Diagnoses Diagnosis Triplet , antepartum- Primary documented in this encounter Care Teams Hospital Account Manager Relationship Specialty Start Date End Date Ilya Chadwick MD [address] [place] [address] PCP - General 03/30/07 documented as of this encounter
--- OUTSIDE RECORDS SUMMARY | 2025-04-22 14:17 | XMS_ITS | Encounter Summary ---
Author Organization [facility] Address [address] [place] [address] Care Team Providers Care Community Arts Officer Name Role Phone Ilya Chadwick MD Primary Care Provider + Encounter Details Date Type Department Care Team (Late st Contact Info) Description 11/05/2002 Outpatient Historical [facility] Maternal and Ground Floor S [facility] [address] [place] [address] Shawna Ralph MD [address] [place] [address] Social History Tobacco Use Types Packs/Day Years Used Date Smoking Tobacco: Never Assessed Comments Unknown Sex and Gender Information Value Date Recorded Sex Assigned at Not on file Legal Sex Female 3:47 AM SUPPORT GROUP MANAGER Gender Identity Not on file Sexual Orientation Not on file documented as of this encounter Plan of Treatment Not on file documented as of this encounter Visit Diagnoses Not on filedocumented in this encounter Care Teams Community Arts Officer Relationship Specialty Start Date End Date Ilya Chadwick MD [address] [place] [id number] PCP - General 03/30/07 documented as of this encounter
--- OUTSIDE RECORDS SUMMARY | 2025-04-22 14:17 | XMS_ITS | Encounter Summary ---
Author Organization [facility] Address [address] [place] [address] Care Team Providers Care Studio Designer Name Role Phone Ilya Chadwick MD Primary Care Provider + Encounter Details Date Type Department Care Team (Late st Contact Info) Description 06/29/2007 Outpatient Historical [facility] Maternal and Ground Floor [facility] [address] [facility] [place] [id number] Ric Arita MD NO ADDRESS ON FILE Social History Tobacco Use Types Packs/Day Years Used Date Smoking Tobacco: Never Assessed Comments Unknown Sex and Gender Information Value Date Recorded Sex Assigned at Not on file Legal Sex Female 3:47 AM LOSS PREVENTION/SAFETY DISTRICT MANAGER Gender Identity Not on file Sexual Orientation Not on file documented as of this encounter Plan of Treatment Not on file documented as of this encounter Visit Diagnoses Not on filedocumented in this encounter Care Teams Studio Designer Relationship Specialty Start Date End Date Ilya Chadwick MD [address] [place] [id number] PCP - General 03/30/07 documented as of this encounter
== END 2025-04-22 13:55 | disposition home or self-care (01) ==
PROVIDERS: Visit Provider Plastic Surgery
DX: S63.502A Unspecified sprain of left wrist, initial encounter (principal); X58.XXXA Exposure to other specified factors, initial encounter
CPT/HCPCS: 73130